=== PATIENT | female | born 1990 | race Two or more races ===

== ENCOUNTER 2017-02-28 20:31 | Emergency (ER) | payer OTHER ==
[~2017-02-28] VITALS: Ht 165.1 cm; Wt 118.0 kg
[~2017-02-28 20:31] MED LIST: ACET500C5 PO; AZIT500T3 PO; CLOT21CR7 VAG; FLUC150T41 PO; HYDR-762 PO; MAG-19 PO; METR500T PO; NITR-58 PO; OMEP20CA9 PO; ZOF8 PO
[2017-02-28 20:33] VITALS: Ht 165.1 cm; Wt 118.0 kg
[2017-02-28] MEDS ORDERED: ALBUTEROL 0.083% (NEB) 2.5 MG/3 ML AMP HHN STA (21:37)
--- NOTE | 2017-02-28 21:54 | ERA ---
ER Documentation Chief Complaint Date/Time DATE: 02/28/17 TIME: 21:51 Chief Complaint asthma exacerbation,out of inhaler,chest burning pain HPI 26-year-old otherwise healthy female presenting with a chief complaint of shortness of breath. Patient has a history of asthma. No other medical conditions. States that it feels like another asthma attack. Has not had her albuterol inhaler, because she cannot find it. Denies cough, fever, chills, chest pain, difficulty swallowing or change in voice. No other complaints and describes no other associated manifestations per ROS All systems reviewed and are negative except as per history of present illness. Medications Home Meds Active Scripts Albuterol Sulfate* (Albuterol Sulfate* Neb) 0.083%-3 Ml Neb, 2.5 MG NEB Q4 Y for SHORTNESS OF BREATH, #30 EA Prov:MARTHA OLIVO PA-C 02/28/17 Acetaminophen* (Tylophen*) 500 Mg Capsule, 1 CAP PO Q6H Y for PAIN AND OR ELEVATED TEMP, #20 CAP Prov:NICOLASA CHEN NP 01/22/16 Omeprazole* (Prilosec*) 20 Mg Capsule.dr, 20 MG PO DAILY, #30 CAP Prov:NICOLASA CHEN NP 01/22/16 Magaldrate/Simethicone* (Mylanta*) 355 Ml Susp, 30 ML PO QID Y for GASTROINTESTINAL UPSET, #1 BOTTLE Prov:NICOLASA CHEN NP 16 Ondansetron Hcl* (Zofran* ODT) 8 mg -ODT Tab.disper, 8 MG PO Q6 Y for NAUSEA AND /OR VOMITING, #14 TAB Prov:SAGAR PORRAS PA-C 07/04/15 Clotrimazole* (Clotrimazole-3*) Vaginal Cream..g., 1 APPLIC VAG HS for 3 Days, EA Prov:SAGAR PORRAS PA-C 07/04/15 Metronidazole* (Flagyl*) 500 Mg Tablet, 500 MG PO BID for 7 Days, TAB Prov:SAGAR PORRAS PA-C 07/04/15 Nitrofurantoin Monohyd Macrocr* (Macrobid*) 100 Mg Capsr, 100 MG PO BID for 7 Days, CAP Prov:CHARLIESAGAR ROCA 07/04/15 Fluconazole* (Fluconazole*) 150 Mg Tablet, 150 MG PO ONCE, #1 TAB TAKE 1 TABLET IN 8 DAYS THE DAY AFTER ANTIBIOTIC COURSE Prov:CHARLIEPRANEETHBarneySAGARC 07/04/15 Acetaminophen* (Tylophen*) 500 Mg Capsule, 1 CAP PO Q6H Y for PAIN AND OR ELEVATED TEMP, #30 CAP Prov:SAGAR PORRAS-C 07/04/15 Omeprazole* (Prilosec*) 20 Mg Capsule.dr, 20 MG PO DAILY, #14 CAP Prov:SAGAR PORRAS 07/04/15 Azithromycin* (Zithromax*) 500 Mg Tablet, 1000 MG PO ONCE, #1 TAB Prov:BEENAJEDSANDEEP C 01/06/15 Hydrocodone Bit-Acetaminophen* ([place]*) 10-325 Mg Tablet, 1 TAB PO Q4H Y for PAIN, #15 TAB Prov:BEENASANDEEP C 01/06/15 Allergies Allergies: Coded Allergies: No Known Drug Allergies (Verified Allergy, Unknown, 01/22/16) PMhx/Soc History of Surgery: No Anesthesia Reaction: No Hx Neurological Disorder: No Hx Respiratory Disorders: Yes (ASTHMA) Hx Cardiac Disorders: No Hx Psychiatric Problems: No Hx Miscellaneous Medical Probl: No Hx Alcohol Use: Yes (OCCASSIONAL ) Hx Substance Use: No Hx Tobacco Use: Yes Smoking Status: Smoker,current status unk Physical Exam Vitals Vital Signs Date Time Temp Pulse Resp B/P Pulse Ox O2 Delivery O2 Flow Rate FiO2 02/28/17 21:50 89 18 99 21 02/28/17 20:33 99.0 99 18 130/75 99 Physical Exam Const: Morbidly obese 26-year-old female no acute distress Pulm: Mild wheezes and the lower lobes bilaterally. No stridor, tripoding or drooling. Neck: No cervical lymphadenopathy, masses or goiter palpated. Trachea midline. Supple ~ No meningismus. Auscultation reviled good air movement and no bruits. Nose: Normal nose without discharge, septal deviation, or sinus tenderness. Cardio: Regular rate and rhythm; No murmurs, gallops or rubs auscultated. No JVD grossly observed. Radial and posterior tibial pulses 2+ bilaterally. No cyanosis. Capillary refill less than 2 seconds. Oral: No oral edema visualized. Mucous membranes moist and pink. Head: Normocephalic, Atraumatic. Eyes: Non-injected; No scleral erythema, discharge or foreign body. EOMI and KEVON bilaterally. Ears: Normal External Ears, EACs clear, TM normal bilaterally without erythema. Abd: Soft, non tender, non distended. No guarding, masses. Normal bowel sounds. No McBurney's point tenderness. MS: Normal motor strength, normal tone with gross examination. Skin: No petechiae or rashes. No ulcer, induration, jaundice. Good turgor. Back: No midline, flank or CVA tenderness. Ext: No cyanosis, edema or palpable cord. Normal movement of all extremities grossly observed. Neur: Awake, alert and oriented x3. Neurovascularly intact bilaterally. Psych: Normal Mood and Affect. Results 24 hrs Current Medications Medications (Trade) Dose Ordered Sig/Roman Route PRN Reason Start Time Stop Time Status Last Admin Dose Admin Albuterol (Proventil 0.083% (Neb)) 5 mg ONCE STAT [facility] 02/28/17 21:37 02/28/17 21:39 DC 02/28/17 21:49 Ipratropium [place] (Atrovent 0.02% (Neb)) 0.5 mg ONCE ONCE [facility] 02/28/17 22:00 02/28/17 22:01 DC 02/28/17 21:49 Procedures/MDM Patient was evaluated and worked up for shortness of breath as described in the history and physical exam. The history provided no identifiable exacerbating triggers of patients known asthma. The differential diagnosis is vast and includes, but is not limited to the following: asthma, pneumonia, bronchitis, bronchiolitis, epiglottis, acute urticaria, foreign body, etc. RT was consulted , and oxygen, 5% albuterol and Ipratropium one hour continuous nebulization was ordered. After reevaluation, the patients symptoms had improved and the lungs were clear to auscultation with no crackles, wheezing or any extra respiratory effort. EKG was ordered, read by my attending as normal sinus rhythm with nonspecific T-wave abnormalities, normal axis, no ST elevations or depressions. The current most likely diagnosis is asthma exacerbation. At this time, I have little suspicion for pulmonary embolism, pneumonia, CHF, acute cardiac disorders, obstruction, allergic reaction, angioedema obstruction or other upper airway disorders. I have presented the case to my attending who agrees with the assessment and plan. The patients vitals are stable. Following treatment, I no longer have a suspicion for endangerment of the airway. Their current status is appropriate for discharge. Patient will be discharged at this time with discharge instructions and return precautions. Prescriptions for continued out-patient therapy will include the following: Albuterol MDI as needed. I do not believe steroids are necessary at this time. After thorough patient education, they have verbally responded that they understand the treatment plan and proper use of medications. Departure Diagnosis: Primary Impression: Asthma Qualified Code: J45.21 - Mild intermittent asthma with acute exacerbation Additional Impression: Asthma with acute exacerbation Qualified Code: J45.21 - Mild intermittent asthma with acute exacerbation Condition: Stable Additional Instructions: Follow up with your PCP within the next 1-3 days for a more thorough evaluation and a possible referral to a specialist. Return the the emergency department immediately if symptoms worsen or change. If you have any questions regarding medications, ask your pharmacist or us before you leave. If any adverse reactions occur while taking your medications, discontinue the treatment and return to the emergency department immediately. Take your medications as directed, and complete the entire course of treatment. MARTHA OLIVO PA-C Feb 28, 2017 21:54
[2017-02-28] MEDS ORDERED: IPRATROPIUM (NEB) 0.5 MG/2.5 ML AMP HHN ONE (22:00)
[2017-02-28] MEDS ORDERED: ALBU2.5V3 NEB (23:17)
[2017-02-28 23:27] VITALS: BP 127/68; PULSE 88; RESP 18; TEMP 99
== END 2017-02-28 23:28 | disposition home or self-care (01) ==
LOC: FTE 20:31
DX: J45.21 Mild intermittent asthma with (acute) exacerbation (principal); F17.210 Nicotine dependence, cigarettes, uncomplicated
CPT/HCPCS: 93005; 94664; Z7502; Z7610

== ENCOUNTER 2017-09-06 23:01 | Emergency (ER) | END 2017-09-07 02:50 | disposition home or self-care (01) ==